=== PATIENT | female | born 1940 | race Caucasian/White ===

== ENCOUNTER 2023-06-16 17:21 | Observation (INO) | payer SELFPAY ==
[2023-06-16 17:32] VITALS: BMI 46.3
[2023-06-16] MEDS ORDERED: hydrALAZINE HCL 20 MG/ML VIAL ONE (18:08)
[2023-06-16] MEDS ORDERED: MECLIZINE HCL 25 MG TABLET (FP) ONE ×2 (18:08→18:09)
[2023-06-16] MEDS: MECLIZINE HCL 25 MG TABLET (FP) PO ONE (18:27)
[2023-06-16] MEDS: hydrALAZINE HCL 20 MG/ML VIAL IVPUSH ONE (18:27)
[2023-06-16 18:40] LABS: BASO % 0.4 % (0-2.0); EOS % 3.6 % (0-4.5); HEMATOCRIT 35.8 % (32.4-45.2); HEMOGLOBIN 12.2 GM/dL (10.7-15.3); LYMPH % 34.6 % (8-40); MCH 29.6 pg (25.7-33.7); MEAN PLT VOLUME 7.9 fl (7.5-11.1); MONO % 8.6 % (3.8-10.2); NEUT % 52.8 % (42.8-82.8); PLATELET COUNT 269 10^3/uL (134-434); RBC 4.11 M/mm3 (3.60-5.2); RDW 13.3 % (11.6-15.6)
[2023-06-16 18:43] LABS: EPI CELLS 20 /uL (0-25.1); HYALINE CASTS 1 /uL (0-3.1); PH,URINE 6.5 (5.0-8.0); URINE APPEARANCE CLEAR; URINE BACTERIA 19 /uL (0-1359); URINE BILIRUBIN NEGATIVE (NEGATIVE); URINE COLOR YELLOW; URINE GLUCOSE (UA) NEGATIVE (NEGATIVE); URINE KETONE NEGATIVE (NEGATIVE); URINE LEUK ESTERASE 1+ (NEGATIVE); URINE NITRITE NEGATIVE (NEGATIVE); URINE PROTEIN NEGATIVE (NEGATIVE); URINE RBC 18 /uL (0-23.9); URINE WBC 60 /uL (0-25.8)
[2023-06-16 18:49] LABS: INR 0.97 (0.83-1.09); PROTHROMBIN TIME (PATIENT) 11.3 SEC (9.7-13.0)
[2023-06-16 18:52] LABS: ACTIVATED PTT 27.9 SECONDS (25.2-36.5)
[2023-06-16] MEDS ORDERED: CEFTRIAXONE 1 GM/50 ML BAG ONE (19:04)
[2023-06-16 19:05] LABS: POTASSIUM 3.9 mmol/L (3.5-5.1)
[2023-06-16 19:07] LABS: CALCIUM 8.9 mg/dL (8.5-10.1)
[2023-06-16 19:08] LABS: ALBUMIN 3.6 g/dl (3.4-5.0); BLOOD UREA NITROGEN 16.2 mg/dL (7-18); MAGNESIUM 2.1 mg/dL (1.8-2.4)
[2023-06-16 19:11] LABS: CREATININE 0.8 mg/dL (0.55-1.3)
[2023-06-16 19:12] LABS: TOT PROT 6.6 g/dl (6.4-8.2)
[2023-06-16 19:13] LABS: BILIRUBIN,TOTAL 0.3 mg/dL (0.2-1)
[2023-06-16 19:16] LABS: N-TERMINAL BNP 414.2 pg/ml (5-450)
[2023-06-16] MEDS: LACTATED RINGERS SOLUTION 1,000 ML/1,000 ML INFUS.BAG IV SCH (21:05)
[2023-06-16] MEDS: CEFTRIAXONE 1 GM in DEXTROSE 5%-WATER - 100 ML IVPB ONE (21:06)
[2023-06-16] MEDS ORDERED: ACETAMINOPHEN 325 MG TABLET (FP) PO PRN (23:07)
[2023-06-17] MEDS ORDERED: hydrALAZINE HCL 20 MG/ML VIAL IVPUSH PRN (01:43)
[2023-06-17] MEDS ORDERED: POLYETHYLENE GLYCOL (HEALTHYLAX) 3350 17 GM PACKET ONE (02:58)
[2023-06-17] MEDS ORDERED: HYDROCHLOROTHIAZIDE 25 MG TABLET (FP) ONE (02:58)
[2023-06-17] MEDS ORDERED: LOSARTAN POTASSIUM 50 MG TABLET ONE (02:58)
[2023-06-17] MEDS: HYDROCHLOROTHIAZIDE 12.5 MG CAPSULE (FP) PO SCH (03:11)
[2023-06-17] MEDS: POLYETHYLENE GLYCOL (HEALTHYLAX) 3350 17 GM PACKET PO ONE (03:11)
[2023-06-17] MEDS: LOSARTAN POTASSIUM 50 MG TABLET PO SCH (03:11)
[2023-06-17] MEDS ORDERED: ASPIRIN 81 MG CHEWABLE TABLETS ONE (03:20)
[2023-06-17] MEDS: ASPIRIN 81 MG CHEWABLE TABLETS PO ONE (03:24)
[2023-06-17 07:20] LABS: BASO % 0.5 % (0-2.0); EOS % 5.3 % (0-4.5); HEMATOCRIT 35.5 % (32.4-45.2); HEMOGLOBIN 11.9 GM/dL (10.7-15.3); LYMPH % 35.2 % (8-40); MCH 29.3 pg (25.7-33.7); MCHC 33.4 g/dl (32.0-36.0); MEAN CELL VOLUME 87.8 fl (80-96); MONO % 9.9 % (3.8-10.2); NEUT % 49.1 % (42.8-82.8); PLATELET COUNT 255 10^3/uL (134-434); RBC 4.04 M/mm3 (3.60-5.2); RDW 13.5 % (11.6-15.6); WHITE BLOOD COUNT 4.9 K/mm3 (4.0-10.0)
[2023-06-17 07:40] LABS: POTASSIUM 3.9 mmol/L (3.5-5.1)
[2023-06-17 07:42] LABS: CALCIUM 8.4 mg/dL (8.5-10.1)
[2023-06-17 07:43] LABS: ALBUMIN 3.3 g/dl (3.4-5.0); BLOOD UREA NITROGEN 12.4 mg/dL (7-18); MAGNESIUM 2.1 mg/dL (1.8-2.4)
[2023-06-17 07:46] LABS: CREATININE 0.8 mg/dL (0.55-1.3); PHOSPHOROUS 4.4 mg/dL (2.5-4.9)
[2023-06-17 07:47] LABS: TOT PROT 6.2 g/dl (6.4-8.2)
[2023-06-17 07:48] LABS: BILIRUBIN,TOTAL 0.7 mg/dL (0.2-1)
[2023-06-17] MEDS ORDERED: CEFTRIAXONE 1 GM/50 ML BAG ONE (10:07)
[2023-06-17] MEDS: ASPIRIN 81 MG CHEWABLE TABLETS PO SCH (10:55)
[2023-06-17] MEDS: POLYETHYLENE GLYCOL (HEALTHYLAX) 3350 17 GM PACKET PO SCH (10:55)
[2023-06-17] MEDS: ENOXAPARIN NA (PORCINE) 40 MG/0.4 ML DISP.SYRIN SQ SCH (10:55)
[2023-06-17] MEDS: CEFTRIAXONE 1 GM in DEXTROSE 5%-WATER - 50 ML IVPB SCH (11:00)
[2023-06-18 06:42] LABS: BASO % 0.7 % (0-2.0); EOS % 5.8 % (0-4.5); HEMATOCRIT 34.4 % (32.4-45.2); HEMOGLOBIN 11.7 GM/dL (10.7-15.3); LYMPH % 33.9 % (8-40); MCH 29.6 pg (25.7-33.7); MEAN CELL VOLUME 87.1 fl (80-96); MEAN PLT VOLUME 8.1 fl (7.5-11.1); MONO % 10.4 % (3.8-10.2); NEUT % 49.2 % (42.8-82.8); PLATELET COUNT 246 10^3/uL (134-434); RBC 3.95 M/mm3 (3.60-5.2); RDW 13.5 % (11.6-15.6); WHITE BLOOD COUNT 4.8 K/mm3 (4.0-10.0)
[2023-06-18 07:08] LABS: ALBUMIN 3.2 g/dl (3.4-5.0); CALCIUM 8.6 mg/dL (8.5-10.1); MAGNESIUM 2.1 mg/dL (1.8-2.4)
[2023-06-18 07:09] LABS: BLOOD UREA NITROGEN 16.7 mg/dL (7-18)
[2023-06-18 07:12] LABS: CREATININE 0.7 mg/dL (0.55-1.3)
[2023-06-18 07:13] LABS: BILIRUBIN,TOTAL 0.5 mg/dL (0.2-1)
[2023-06-18 08:50] VITALS: BP 146/81; PULSE 87; RESP 16; TEMP 97.7
== END 2023-06-18 12:41 | disposition home or self-care (01) ==
LOC: JER 17:21 → JERBED 20:42 → J4W 06-17 15:10
PROVIDERS: ADMIT Internal Medicine; ATTEND Nurse Practitioner Acute Care
PROC: 3E03329 Introduction of Other Anti-infective into Peripheral Vein, Percutaneous Approach (ICD-10-PCS; principal; 2023-06-16)
PROC: 3E023GC Introduction of Other Therapeutic Substance into Muscle, Percutaneous Approach (ICD-10-PCS; 2023-06-16)
PROC: 3E0337Z Introduction of Electrolytic and Water Balance Substance into Peripheral Vein, Percutaneous Approach (ICD-10-PCS; 2023-06-16)
PROC: 3E033GC Introduction of Other Therapeutic Substance into Peripheral Vein, Percutaneous Approach (ICD-10-PCS; 2023-06-16)
DX: I16.0 Hypertensive urgency (principal); Z29.9 Encounter for prophylactic measures, unspecified; R94.31 Abnormal electrocardiogram [ECG] [EKG]; N39.0 Urinary tract infection, site not specified; R10.84 Generalized abdominal pain; R42 Dizziness and giddiness; R51.9 Headache, unspecified; R06.02 Shortness of breath; R30.0 Dysuria
CPT/HCPCS: 0241U-QW; 36415; 70450-TC; 70551-TC; 71045-TC-FY; 80053; 81003; 83735; 83880; 84100; 84443; 84484; 85025; 85610; 85730; 87086; 93005; 93010; 93306-TC; 97116-GP; 97161-GP; 99285-25; G0378